=== PATIENT | male | born 1980 | race African-American/Black ===

== ENCOUNTER 2024-01-26 15:47 | Emergency (ER) | payer BC ==
[2024-01-26] MEDS: Ketorolac 30 MG/ML SDV IM ONE (19:59)
== END 2024-01-26 20:11 | disposition home or self-care (01) ==
LOC: JD.ED 15:47
DX: M25.462 Effusion, left knee (principal); E11.9 Type 2 diabetes mellitus without complications; Z79.899 Other long term (current) drug therapy
CPT/HCPCS: 73562; 96372; 99283; J1885